=== PATIENT | male | born 1980 | race Caucasian/White ===

== ENCOUNTER 2020-12-01 16:35 | Inpatient (IN) | payer MEDICAID ==
[~2020-12-01] VITALS: Ht 175.3 cm; Wt 80.3 kg
[2020-12-01] MEDS ORDERED: MELA5TAB3 PO (18:43)
[2020-12-01] MEDS ORDERED: DIVA-112 PO (18:43)
[2020-12-01] MEDS ORDERED: LURA40TA2 PO (18:43)
[2020-12-01] MEDS ORDERED: HALOPERIDOL 5 MG TABLET PO PRN (19:00)
[2020-12-01] MEDS ORDERED: LORazepam 2 MG TABLET PO PRN (19:00)
[2020-12-01] MEDS ORDERED: INFLUENZA VIRUS VACCINE QVS 2020-21 (6MO+)/PF 60 MCG/0.5 ML SYRINGE IM ONE (19:15)
[2020-12-01] MEDS ORDERED: PNEUMOCOCCAL VACCINE POLYVALENT 0.5 ML VIAL [PPSV23] IM ONE (19:15)
[2020-12-01 19:28] VITALS: BP 149/78
[2020-12-01] MEDS ORDERED: LISI-893 PO (19:52)
[2020-12-01] MEDS: ZOLPIDEM TARTRATE 10 MG TABLET PO PRN (20:26)
[2020-12-02 00:24] VITALS: BP 137/76
[2020-12-02 08:12] VITALS: BP 129/71
[2020-12-02 08:19] LABS: BASOPHILS % (AUTO) 0.4 % (0.0-2.0); EOSINOPHILS % (AUTO) 1.8 % (1.0-6.0); HEMATOCRIT 43.7 % (41-53); HEMOGLOBIN 14.4 g/dL (13.5-17.5); LYMPHOCYTES # (AUTO) 1.7 K/uL (1.0-4.8); LYMPHOCYTES % (AUTO) 37.4 % (22.0-44.0); MEAN CORPUSCULAR HEMOGLOBIN 30.1 pg (26.0-34.0); MEAN CORPUSCULAR HGB CONC 32.9 G/dL (31.0-37.0); MEAN CORPUSCULAR VOLUME 92 fL (80-100); MONOCYTES # (AUTO) 0.5 K/uL (0.1-1.0); MONOCYTES % (AUTO) 11.4 % (2.0-9.0); NEUTROPHILS # (AUTO) 2.3 K/uL (1.8-7.7); PLATELET COUNT (AUTO) 243 K/uL (150-450); RED BLOOD CELL COUNT(AUTO) 4.78 MIL/uL (4.50-5.90); RED CELL DISTRIBUTION WIDTH 15.2 % (11.5-14.5)
[2020-12-02 08:21] LABS: HEMOGLOBIN A1C 5.4 % (3.8-5.6)
[2020-12-02 08:29] LABS: ANION GAP 7 mmol/L (8-16); CARBON DIOXIDE 30 mmol/L (22-29); CHLORIDE 103 mmol/L (98-107); FREE T4 (FREE THYROXINE) 0.85 ng/dL (0.76-1.46); POTASSIUM 4.1 mmol/L (3.5-5.1); SODIUM SERUM 140 mmol/L (136-145)
[2020-12-02] MEDS: LISINOPRIL 10 MG TABLET PO SCH (08:42)
[2020-12-02] MEDS: NICOTINE 14 MG/24 HOUR PATCH TD SCH (08:42)
[2020-12-02] MEDS ORDERED: CloNIDine HCL 0.1 MG TABLET PO PRN (08:45)
[2020-12-02] MEDS ORDERED: ALBUTEROL SULFATE HFA 90 MCG/PUFF 8 GM INHALER IH PRN (08:45)
[2020-12-02] MEDS ORDERED: MAG HYDROX/AL HYDROX/SIMETH ES 30 ML SUSPENSION UDCUP PO PRN (08:45)
[2020-12-02] MEDS ORDERED: ONDANSETRON HCL 4 MG TABLET PO PRN (08:45)
[2020-12-02] MEDS ORDERED: LOPERAMIDE HCL 2 MG CAPSULE PO PRN (08:45)
[2020-12-02] MEDS ORDERED: ACETAMINOPHEN 325 MG TABLET PO PRN (08:45)
[2020-12-02] MEDS ORDERED: PETROLATUM,WHITE 28 GM JELLY TP PRN (08:45)
[2020-12-02] MEDS ORDERED: NICOTINE 14 MG/24 HOUR PATCH TD PRN (08:45)
[2020-12-02] MEDS ORDERED: DOCUSATE SODIUM 100 MG CAPSULE PO PRN (08:45)
[2020-12-02] MEDS ORDERED: IBUPROFEN 400 MG TABLET PO PRN (08:45)
[2020-12-02] MEDS ORDERED: MAGNESIUM HYDROXIDE SUSPENSION 30 ML UDCUP PO PRN (08:45)
[2020-12-02] MEDS ORDERED: GuaiFENesin/D-METHORPHAN [SUGAR-FREE] 200-20MG/10 ML SYRUP UDCUP PO PRN (08:45)
[2020-12-02 08:57] LABS: ALANINE AMINOTRANSFERASE 45 U/L (12-78); ALBUMIN 3.6 g/dL (3.4-5.0); ALKALINE PHOSPHATASE 70 U/L (46-116); ASPARTATE AMINOTRANSFERASE 22 U/L (15-37); BILIRUBIN,TOTAL 0.4 mg/dL (0.1-1.0); CALCIUM, TOTAL 9.3 mg/dL (8.8-10.5); CHOL/HDL RATIO 5.6 (4.2-7.3); CHOLESTEROL 230 mg/dL (131-200); CREATININE 0.97 mg/dL (0.60-1.30); GLOMERULAR FILTR. RATE CALC > 60 mL/min (>60); GLUCOSE,RANDOM 88 mg/dL (70-110); HDL CHOLESTEROL 41 mg/dL (40-60); LDL CHOL (CALC.) 165 mg/dL (0-130); TRIGLYCERIDES 121 mg/dL (15-150); UREA NITROGEN, BLOOD 21 mg/dL (7-18)
[2020-12-02] MEDS ORDERED: LISINOPRIL 10 MG TABLET PO SCH (09:00)
[2020-12-02 16:29] VITALS: BP 116/64
[2020-12-02] MEDS: LURASIDONE HCL 40 MG TABLET PO SCH (16:37)
[2020-12-02] MEDS: DIVALPROEX SODIUM 500 MG DR TABLET PO SCH (16:38)
[2020-12-02] MEDS: MELATONIN 5 MG TABLET PO SCH (20:17)
[2020-12-03 00:52] VITALS: BP 113/63
[2020-12-03 08:45] VITALS: BP 112/60
[2020-12-03] MEDS: NICOTINE 14 MG/24 HOUR PATCH TD SCH (08:47)
[2020-12-03] MEDS: LISINOPRIL 10 MG TABLET PO SCH (08:47)
[2020-12-03 16:29] VITALS: BP 107/64
[2020-12-03] MEDS: LURASIDONE HCL 40 MG TABLET PO SCH (16:47)
[2020-12-03] MEDS: DIVALPROEX SODIUM 500 MG DR TABLET PO SCH (16:47)
[2020-12-03] MEDS: ZOLPIDEM TARTRATE 10 MG TABLET PO PRN (20:39)
[2020-12-03] MEDS: MELATONIN 5 MG TABLET PO SCH (20:39)
[2020-12-04] VITALS: BP 114/64
[2020-12-04 08:38] VITALS: BP 107/63
[2020-12-04] MEDS: LISINOPRIL 10 MG TABLET PO SCH (09:00)
[2020-12-04] MEDS: NICOTINE 14 MG/24 HOUR PATCH TD SCH ×2 (09:00→10:25)
[2020-12-04] MEDS: DIVALPROEX SODIUM 500 MG DR TABLET PO SCH (16:11)
[2020-12-04] MEDS: LURASIDONE HCL 40 MG TABLET PO SCH (16:11)
[2020-12-04 16:19] VITALS: BP 108/60
[2020-12-04] MEDS: MELATONIN 5 MG TABLET PO SCH (20:04)
[2020-12-05 00:28] VITALS: BP 112/64
[2020-12-05 08:31] VITALS: BP 112/60
[2020-12-05] MEDS: NICOTINE 14 MG/24 HOUR PATCH TD SCH (09:00)
[2020-12-05] MEDS: LISINOPRIL 10 MG TABLET PO SCH (09:00)
[2020-12-05] MEDS ORDERED: DiphenhydrAMINE HCL 50 MG/ML VIAL IM ONE (11:30)
[2020-12-05] MEDS ORDERED: LORazepam 2 MG/ML VIAL IM ONE (11:30)
[2020-12-05] MEDS ORDERED: HALOPERIDOL LACTATE 5 MG/ML VIAL IM ONE (11:30)
[2020-12-05] MEDS ORDERED: DiphenhydrAMINE HCL 50 MG/ML VIAL ONE (11:35)
[2020-12-05] MEDS ORDERED: HALOPERIDOL LACTATE 5 MG/ML VIAL ONE (11:35)
[2020-12-05] MEDS ORDERED: LORazepam 2 MG/ML VIAL ONE (11:35)
[2020-12-05] MEDS: LURASIDONE HCL 40 MG TABLET PO SCH (17:00)
[2020-12-05] MEDS: DIVALPROEX SODIUM 500 MG DR TABLET PO SCH (17:00)
[2020-12-05] MEDS: MELATONIN 5 MG TABLET PO SCH (20:25)
[2020-12-06 06:08] VITALS: BP 128/68
[2020-12-06] MEDS: NICOTINE 14 MG/24 HOUR PATCH TD SCH (09:00)
[2020-12-06] MEDS: LISINOPRIL 10 MG TABLET PO SCH (09:00)
[2020-12-06] MEDS ORDERED: DIVA-112 PO (09:20)
[2020-12-06] MEDS ORDERED: LURA40TA2 PO (09:20)
== END 2020-12-06 12:10 | disposition home or self-care (01) | DRG 753 ==
LOC: B2S 18:58 → B3A 12-05 11:50
DX: F31.5 Bipolar disorder, current episode depressed, severe, with psychotic features (principal); E78.5 Hyperlipidemia, unspecified; G47.00 Insomnia, unspecified; I10 Essential (primary) hypertension; J45.909 Unspecified asthma, uncomplicated; Z59.0 Homelessness; Z65.3 Problems related to other legal circumstances; Z79.899 Other long term (current) drug therapy; Z91.5 Personal history of self-harm; Z28.21 Immunization not carried out because of patient refusal
CPT/HCPCS: 83036; 84439; 84443; A9575; J1200; J1630; J2060